=== PATIENT | female | born 1970 | race Caucasian/White ===

== ENCOUNTER 2020-10-13 12:13 | Emergency (ER) | payer MEDICAID ==
[~2020-10-13] VITALS: Ht 160 cm; Wt 86.2 kg
[~2020-10-13 12:13] MED LIST: ALBU8HFA INH; BECL7.3A INH; FURO20TA4 PO; GUAI600T45 PO; IBUP-1986 PO; IBUP1CAP3 PO; PRED10TA PO
[2020-10-13 13:57] LABS: CLARITY,URINE CLEAR (Clear); COLOR,URINE STRAW (Yellow); GLUCOSE, URINE NEGATIVE (Neg); KETONES,URINE NEGATIVE (Neg); LEUKOCYTE ESTERASE ,URINE NEGATIVE (Neg); NITRITES, URINE NEGATIVE (Neg); OCCULT BLOOD,URINE NEGATIVE (Neg); PROTEIN,URINE NEGATIVE (Neg); UROBILINOGEN,URINE 0.2 E.U/dL (0.2-1.0)
[2020-10-13 14:17] LABS: UA COLLECTION TYPE CLN CATCH MIDSTREAM
[2020-10-13 17:17] VITALS: BP 141/70
[2020-10-13] MEDS ORDERED: CYCL-1 PO (17:35)
[2020-10-13] MEDS ORDERED: ketorolac trometh. 30mg/ml inj. IM ONE (17:35)
== END 2020-10-13 18:02 | disposition home or self-care (01) ==
LOC: ER 12:13
DX: M54.5 Low back pain (principal); J45.909 Unspecified asthma, uncomplicated; Z87.01 Personal history of pneumonia (recurrent); Z87.440 Personal history of urinary (tract) infections; M06.9 Rheumatoid arthritis, unspecified; E11.9 Type 2 diabetes mellitus without complications; Z86.73 Personal history of transient ischemic attack (TIA), and cerebral infarction without residual deficits; Z85.9 Personal history of malignant neoplasm, unspecified; Z88.8 Allergy status to other drugs, medicaments and biological substances; Z79.899 Other long term (current) drug therapy
CPT/HCPCS: 81003; 96372; 99283; J1885

== ENCOUNTER 2021-12-29 16:46 | Emergency (ER) | payer MEDICAID ==
[~2021-12-29] VITALS: Ht 160 cm; Wt 90.5 kg
[~2021-12-29 16:46] MED LIST changes: +CYCL-1 PO
[2021-12-29] MEDS ORDERED: acetaminophen 325mg tablet PO ONE (19:15)
[2021-12-29] MEDS ORDERED: ketorolac tromethamine 15mg/ml inj. IM ONE (19:35)
[2021-12-29] MEDS ORDERED: TAM75C PO (21:30)
[2021-12-29 21:43] VITALS: BP 99/67
== END 2021-12-29 21:47 | disposition home or self-care (01) ==
LOC: ER 16:47
DX: J11.1 Influenza due to unidentified influenza virus with other respiratory manifestations (principal); Z20.822 Contact with and (suspected) exposure to COVID-19; R05.9 Cough, unspecified; R09.89 Other specified symptoms and signs involving the circulatory and respiratory systems; J45.909 Unspecified asthma, uncomplicated; F31.9 Bipolar disorder, unspecified; Z87.01 Personal history of pneumonia (recurrent); Z87.440 Personal history of urinary (tract) infections; Z98.890 Other specified postprocedural states; Z88.5 Allergy status to narcotic agent; Z79.899 Other long term (current) drug therapy
CPT/HCPCS: 71045; 87502; 87503; 87635; 96372; 99285; C9803; J1885

== ENCOUNTER 2025-07-11 13:30 | Emergency (ER) | payer MEDICARE, MEDICAID ==
[~2025-07-11] VITALS: Ht 160 cm; Wt 93.1 kg
[2025-07-11 13:33] VITALS: RESP 20
--- NOTE | 2025-07-11 13:42 | ELECTROCARDIOGRAPH REPORT ---
[facility] Test Date: 2025-07-11 Test Time: 13:41:03 Pat Name: VAIBHAV ROWAN Department: EMERGENCY ROOM Patient ID: [facility]-[id number] Room: Gender: F Sales Support Representative: GAMA : 1970 Requested By: TATE KELLEY Order Number: [id number] Reading MD: Dr. CODY June Measurements Intervals [place] Rate: 76 P: 60 CT: 156 QRS: 41 QRSD: 84 T: 54 QT: 389 QTc: 438 Interpretive Statements Sinus rhythm Low voltage, precordial leads Abnormal R-wave progression, early transition Electronically Signed On 07-12-2025 19:39:[address] CODY June Please click the below link to view image of tracing.
--- NOTE | 2025-07-11 13:50 | Physician Documentation ---
History of Present Illness ~ Chief Complaint: Shortness of Breath Stated Complaint: COLD SYMPTOMS Primary Medical Doctor: Dr. Viji MD @ [facility] in [place] HPI Patient is a very pleasant 55-year-old female that presents to the emergency department for evaluation of shortness of breath chest pressure cough and congestion times several days. She reports intermittent fevers, no nausea no vomiting but does report diarrhea at this time. Other symptoms reported at this time. Medication Reconciliation Allergies: Coded Allergies: codeine (Verified Allergy, Unknown, 07/11/25) Scheduled Beclomethasone Dipropionate (Qvar 40 MCG INHALER), 2 PUFFS INH BID Furosemide (Furosemide), 1 TABLET PO DAILY Guaifenesin (Mucinex), 1 TABLET PO BID Ibuprofen (Ibuprofen), 1 TAB PO Q8H Ibuprofen/Pseudoephedrine HCl (Advil Cold-Sinus Liqui-Gels), 1 CAP PO BID, (Reported) Prednisone (Prednisone), 0 PO DAILY Scheduled PRN Cyclobenzaprine* (Cyclobenzaprine*), 1 TABLET PO Q8H PRN for muscle spasms albuterol inhaler (Pro-Air Inhaler), 1-2 PUFFS INH Q4H PRN for SOB or wheezing Past Medical History Past Medical History: Asthma, Pneumonia, UTI, Rheumatoid Arthritis, Bipolar, Depression Past Surgical History: Patient History: (CVA) Cerebrovascular accident (Cancer) Malignant carcinoid tumor (DM Type 2) Diabetes mellitus type 2 Alcohol Use: None Drug Use: none Lives In: Home Review of Systems ROS As stated above in the HPI, otherwise all systems are reviewed and negative. Physical Exam Vital Signs: Temperature: 98.3, Source: Temporal, Heart Rate: 88, Respiratory Rate: 20, BP: 144/85, Pulse Oximetry: 96, Weight: 93.100 Oxygen Flow Rate: 0 Physical Exam VITALS: Reviewed and as above. GENERAL: Alert, no apparent distress. HEENT: Normocephalic, atraumatic, PERRL, EOMI, dry mucosa, no erythema RESPIRATORY: Lungs clear, normal breath sounds, no respiratory distress. CHEST: No accessory muscle use, no retractions CV: Initial rate was tachycardic but normalized during visit, rhythm, no edema, no murmur, No: JVD GI: Soft, non-tender, bowels sounds present, no rebound, guarding, or rigidity BACK: No CVA tenderness, or swelling MUSCULOSKELETAL No deformities, no edema SKIN: Warm and dry, no rash NEURO: Oriented x4, No motor or sensory deficit PSYCH: Normal mood and affect, no agitation Progress Results/Orders Results/Orders Orders - SCOOTERYOHANA [employer]TER [employer]HER Urinalysis, Cult If Indicated (07/11/25 15:51) Vital Signs 07/11/25 07/11/25 13:33 16:41 Temp 98.3 Pulse 88 59 Resp 20 B/P (MAP) 144/85 112/70 (84) Pulse Ox 96 96 O2 Flow Rate 0 0 Laboratory Tests Test 07/11/25 13:56 07/11/25 15:38 White Blood Count 11.9 H Red Blood Count 4.67 Hemoglobin 14.4 Hematocrit 42.7 Mean Corpuscular Volume 91.4 Mean Corpuscular Hemoglobin 30.9 Mean Corpuscular Hemoglobin Concent 33.8 Red Cell Distribution Width 13.6 Platelet Count 301 Mean Platelet Volume 8.8 Neutrophils (%) (Auto) 60.8 Lymphocytes (%) (Auto) 26.0 Monocytes (%) (Auto) 9.6 Eosinophils (%) (Auto) 2.2 Basophils (%) (Auto) 1.4 H Neutrophils # (Auto) 7.2 Lymphocytes # (Auto) 3.1 Monocytes # (Auto) 1.1 H Eosinophils # (Auto) 0.3 Basophils # (Auto) 0.2 CBC Comment Sodium Level 140 Potassium Level 4.1 Chloride Level 105 Carbon Dioxide Level 26.0 Anion Gap 9 Blood Urea Nitrogen 13 Creatinine 0.93 H Estimated GFR/1.73 m2 62 BUN/Creatinine Ratio 14.0 Glucose Level 101 Calcium Level 8.8 Troponin I High Sensitivity < 4 L < 4 L Troponin I High Sens Percent Delta Troponin I Hi Sens Absolute Change Pro-B-Type Natriuretic Peptide 54 Albumin 4.0 Chemistry Comments Medical Decision Making Additional information obtaine: other Findings Chief Complaint: Shortness of breath, chest pressure, cough, and congestion History of Present Illness: 55-year-old female presenting with several days of shortness of breath, chest pressure, cough, and congestion. Associated symptoms include intermittent fevers and diarrhea. No nausea or vomiting reported. Differential Diagnosis Considered: The differential diagnosis for dyspnea in this age group includes both cardiac and pulmonary etiologies. Cardiac causes considered included acute coronary syndrome and congestive heart failure. Pulmonary causes considered included pneumonia, acute asthma exacerbation, chronic obstructive pulmonary disease exacerbation, and pulmonary embolism. Given the constellation of respiratory symptoms with fever and gastrointestinal symptoms, viral respiratory illness was also considered. Diagnostic Workup: Cardiac evaluation: Serial troponins negative, ruling out acute myocardial infarction. 12-lead electrocardiogram showed no acute ischemic changes or arrhythmias. These findings effectively exclude acute coronary syndrome as the etiology. Chest X-ray: Unremarkable, with no evidence of pneumonia, pulmonary edema, or other acute cardiopulmonary process. Vital signs: Stable throughout emergency department course Additional testing: Other diagnostic tests unremarkable Medical Decision-Making: Given the negative cardiac workup including troponins and ECG, acute coronary syndrome has been effectively ruled out. The unremarkable chest X-ray excludes pneumonia and congestive heart failure as likely etiologies. The clinical presentation is most consistent with a viral respiratory illness, possibly with reactive airways component given the respiratory symptoms. The patient meets criteria for safe discharge home as outlined by the [employer], including: [id number] symptoms, no new supplemental oxygen requirement, ability to ambulate without significant oxygen desaturation, ability to obtain and understand prescribed medications, and ability to follow up with outpatient care. The patient demonstrated understanding of discharge instructions and return precautions. Disposition: Discharge home with close outpatient follow-up Treatment Plan: Albuterol inhaler prescribed for symptomatic relief of bronchospasm Supportive care measures including rest, hydration, and [id number] symptom management as needed Follow-up with primary care provider within 1-2 weeks as recommended for patients with respiratory symptoms Return Precautions: Patient instructed to return to the emergency department for worsening shortness of breath, chest pain, persistent fever, inability to tolerate oral intake, signs of dehydration, or any other concerning symptoms. Complexity: Moderate complexity given the need to exclude multiple potentially serious cardiopulmonary conditions through comprehensive diagnostic evaluation. Heart Score: 2 Differential Dx:Considerations: Include: anxiety, asthma, bronchitis, cardiog enic shock, CHF, COPD, dysrhythmia, hypertension, accelerated, hypertension, essential, hypertension, malignant, hyperventilation, hyponatremia, myocardial infarction, panic attack, pneumonia, pneumonitis, pneumothorax, PSVT, pulmonary embolism, respiratory distress, respiratory failure, sinusitis, upper resp. infection, other Departure Disposition: 01 HOME / SELF CARE / HOMELESS Impression: Primary Impression: Acute upper respiratory infection Additional Impression: Viral illness Condition: Stable Discharge Instructions: Asthma, Adult, [id number], Viral Syndrome, Upper Respiratory Infection, Adult Referrals: NO PRIMARY CARE PROVIDER (PCP) Prescriptions albuterol inhaler (Pro-Air Inhaler) 8.5 Gm Inhaler 1-2 PUFFS PO Q4H PRN for shortness of breath, #1 INH Prov: YOHANA HELMS 07/11/25 Education Educated: Patient Educated regarding: diagnosis, treatment, need for follow up Signature Scribe Signature: A Attestation: Scribed for Emergency,Department by ALE Marino . 07/11/25 18:34 YOHANA HELMS Jul 11, 2025 13:49
--- NOTE | 2025-07-11 13:53 | RADIOLOGY REPORT ---
CLINICAL HISTORY: CP TECHNIQUE: Single view of the chest was obtained. COMPARISON: None FINDINGS: The heart size and pulmonary vasculature are normal. The lungs are clear. IMPRESSION: NO ACUTE CARDIOPULMONARY PROCESS.
[2025-07-11 14:16] LABS: MEAN PLATELET VOLUME 8.8 FL (7.4-10.4); RED CELL DISTRIBUTION WIDTH 13.6 % (11.5-14.5)
[2025-07-11 14:44] LABS: CREATININE 0.93 MG/DL (0.40-0.90); PRO BRAIN NATRIURETIC PEPTIDE 54 PG/ML (0-125); TOTAL CARBON DIOXIDE 26.0 MMOL/L (24-32); eCRCL 56 ML/MIN; eGFR 62 ML/MIN
[2025-07-11 16:41] VITALS: BP 112/70; PULSE 59; O2SAT 96
[2025-07-11] MEDS ORDERED: ALBU8HFA PO (18:33)
[2025-07-11 19:23] VITALS: TEMP 98.3
== END 2025-07-11 19:24 | disposition home or self-care (01) ==
LOC: ER 13:30
DX: J06.9 Acute upper respiratory infection, unspecified (principal); E11.9 Type 2 diabetes mellitus without complications; F31.9 Bipolar disorder, unspecified; J45.909 Unspecified asthma, uncomplicated; M06.9 Rheumatoid arthritis, unspecified; Z88.5 Allergy status to narcotic agent; Z88.8 Allergy status to other drugs, medicaments and biological substances
CPT/HCPCS: 36415; 71045; 80048; 83880; 84484; 85025; 93005; 99285